=== PATIENT | female | born 1975 | race Asian ===

== ENCOUNTER 2016-05-27 21:11 | Observation (INO) | payer BC, OTHER ==
[~2016-05-27] VITALS: Ht 147.3 cm; Wt 61.2 kg
[2016-05-27 21:30] LABS: Basophils # (auto) 0.1 uL; Basophils % (auto) 0.3 % (0.0-2.0); Eosinophils # (auto) 0.4 uL; Hematocrit 42.3 % (36.0-46.0); Hemoglobin 14.6 g/dL (12.2-16.2); Lymphocytes # (auto) 2.3 uL; Lymphocytes % (auto) 11.5 % (10.0-50.0); Mean Corpuscular Hemoglobin 30.9 pg (28.0-32.0); Mean Corpuscular Hgb Conc. 34.5 g/dL (32.0-36.0); Mean Corpuscular Volume 89.5 fL (80.0-100.0); Mean Platelet Volume 7.2 fL (7.4-10.4); Monocytes # (auto) 0.9 uL; Monocytes % (auto) 4.6 % (0.0-12.0); Neutrophils # (auto) 16.6 uL; Neutrophils % (auto) 81.6 % (37.0-80.0); Platelet Count (auto) 366 10^3/uL (140-450); Red Cell Distribution Width 12.7 % (11.6-16.0); White Blood Cell 20.4 10^3/uL (4.4-10.8)
[2016-05-27] MEDS ORDERED: IBUPROFEN 600 MG TAB PO ONE (21:30)
[2016-05-27 22:25] LABS: Albumin 3.1 g/dL (3.4-5.0); Alkaline Phosphatase 166 U/L (45-117); Anion Gap 17 (5-15); Aspartate Aminotransferase 39 U/L (15-37); Bilirubin, Total 0.4 mg/dL (0.2-1.0); Blood Urea Nitrogen 9 mg/dL (7-18); Calcium 8.7 mg/dL (8.5-10.1); Carbon Dioxide 18 mmol/L (21-32); Chloride 103 mmol/L (98-107); GFR African American 173 mL/min; GFR Non-African American 143 mL/min; Glucose 309 mg/dL (74-106); Potassium 3.6 mmol/L (3.5-5.1); Sodium 138 mmol/L (136-145); Total Protein 8.1 g/dL (6.4-8.2)
[2016-05-28] MEDS ORDERED: SODIUM CHLORIDE 0.9% 1,000 ML IV ONE (03:48)
[2016-05-28] MEDS ORDERED: PENICILLIN G POTASSIUM 2,500,000 UNITS in D5W 5% 50 ML IV SCH (04:00)
[2016-05-28] MEDS ORDERED: AZITHROMYCIN 250 MG TAB PO ONE (04:45)
[2016-05-28 04:51] LABS: Urine Bilirubin Negative (Negative); Urine Blood Negative /uL (Negative); Urine Color Yellow (Yellow); Urine Nitrite Negative (Negative); Urine RBC 2 /hpf (0 - 4); Urine Squamous Epithelial Cell FEW /hpf (<5); Urine Urobilinogen Normal (Negative)
[2016-05-28 04:52] LABS: Urine Glucose 4+ mg/dL (Normal); Urine Ketone 4+ (Negative)
[2016-05-28 06:09] VITALS: BP 103/64
== END 2016-05-28 06:17 | disposition home or self-care (01) | DRG 759 ==
LOC: ER 21:11 → OVERFLOW 05-28 03:50 → ER 05-28 06:17
PROVIDERS: ADMIT Physician Assistant Medical; ATTEND Physician Assistant Medical
DX: B37.49 Other urogenital candidiasis (principal); R73.9 Hyperglycemia, unspecified
CPT/HCPCS: 36415; 71010; 80053; 81001; 81025; 84484; 85025; 96360; 96361; 96372; G0378; J7060